=== PATIENT | male | born 1990 | race Caucasian/White ===

== ENCOUNTER 2020-10-25 12:02 | Emergency (ER) | payer SELFPAY ==
[~2020-10-25] VITALS: Ht 182.9 cm; Wt 107.0 kg
[2020-10-25 12:05] VITALS: BP 158/108
[2020-10-25] MEDS ORDERED: KETOROLAC TROMETH 60MG/2ML VIAL IM ONE (13:15)
[2020-10-25] MEDS ORDERED: METHOCARBAMOL 500 MG TAB PO ONE (13:15)
== END 2020-10-25 13:55 | disposition home or self-care (01) ==
LOC: ER 12:02
DX: M54.42 Lumbago with sciatica, left side (principal)
CPT/HCPCS: 96372; 99283; J1885

== ENCOUNTER 2023-09-16 02:00 | Emergency (ER) | payer MEDICAID ==
[~2023-09-16] VITALS: Ht 182.9 cm; Wt 109.9 kg
[2023-09-16 02:07] VITALS: BP 11/115; PULSE 98; RESP 16; O2SAT 97
[2023-09-16 02:43] LABS: Urine Bacteria NONE SEEN /hpf (None Seen); Urine Blood Negative /uL (Negative); Urine Clarity Clear (Clear); Urine Protein, UAD Negative (Negative); Urine Specific Gravity 1.023 (1.001-1.035); Urine Urobilinogen Normal (Negative); Urine WBC 1 /hpf (0 - 3)
[2023-09-16 02:44] LABS: Urine Color Straw (Yellow)
== END 2023-09-16 04:06 | disposition left against medical advice (07) ==
LOC: ER 02:00
DX: N50.811 Right testicular pain (principal); Z88.0 Allergy status to penicillin
CPT/HCPCS: 81001